=== PATIENT | female | born 1995 | race Caucasian/White ===

== ENCOUNTER → 2018-04-02 | Outpatient (CLI) | payer BC, OTHER | LOC: RAD 09:05 | DX: S13.4XXA Sprain of ligaments of cervical spine, initial encounter (principal); V89.2XXA Person injured in unspecified motor-vehicle accident, traffic, initial encounter; Y93.89 Activity, other specified; Y92.89 Other specified places as the place of occurrence of the external cause; Y99.8 Other external cause status ==

== ENCOUNTER → 2019-08-18 | Outpatient (CLI) | payer BC, OTHER | LOC: NUC 09:35 | DX: R10.84 Generalized abdominal pain (principal); R19.7 Diarrhea, unspecified ==

== ENCOUNTER 2019-11-05 06:07 | Day surgery (SDC) | payer BC ==
[~2019-11-05] VITALS: Ht 172.7 cm; Wt 95.3 kg
[~2019-11-05 06:07] MED LIST: ISIBLOOM 28 DA1 EACH PO; TRAZODONE HCL50 MG PO; ZYRTEC10 M2 PO
[2019-11-05 06:42] LABS: HEMATOCRIT 42.9 % (37.0-47.0); HEMOGLOBIN 15.1 gm/dL (12.0-15.0); MCH 28.9 pg (26.0-34.0); MCHC 35.2 g/dL (28.0-37.0); MCV 82.1 fL (80.0-100.0); RBC 5.22 mil/uL (4.20-5.00); RDW 13.1 % (10.5-14.5); WBC 8.4 thou/uL (4.0-11.0)
[2019-11-05 06:50] LABS: CALCIUM 9.2 mg/dL (8.5-10.1); CREATININE 0.8 mg/dL (0.6-1.0); POTASSIUM 3.8 mmol/L (3.5-5.1)
[2019-11-05 06:57] LABS: TOTAL BILIRUBIN 0.7 mg/dL (<0.1-1.0); TOTAL PROTEIN 7.6 g/dL (6.4-8.2)
[2019-11-05 06:58] VITALS: BP 123/74
[2019-11-05] MEDS ORDERED: IBUPROFEN 200200 M1 PO (08:44)
[2019-11-05] MEDS ORDERED: TRAMADOL 50 MG50 MG PO (08:44)
[2019-11-05] MEDS ORDERED: COLACE 100 MG100 MG PO (08:45)
[2019-11-05] MEDS ORDERED: ACETAMINOPHEN325 M1 PO (08:45)
[2019-11-05] MEDS ORDERED: MIRALAX17 GM PO (08:46)
[2019-11-05 08:59] VITALS: BP 123/74
--- NOTE | 2019-11-09 18:08 | PATH ---
[facility] [address] [place] [address] PATHOLOGY RPT PROCEDURE Name: KAREN MASON Room #: DEP [facility] M.R.#: [id number] Admission: 11/05/19 Date of : 89 Discharge: 11/05/19 Report #: [id number] Path Case #: [id number] [facility] Accession Number: [id number] . 01 Material submitted: . gallbladder - GALLBLADDER . 01 Clinical history: . Biliary dyskinesia . 02 Diagnosis: Gallbladder, cholecystectomy: - Mild chronic cholecystitis. - Cholelithiasis. (IUV/db; 11/09/2019) LBQ 11/09/2019 1423 Local . 02 Electronically signed: . Amie Quinn MD, Pathologist NPI- [id number] . 01 Gross description: . The specimen is received in formalin, labeled "Karen Pummel, gallbladder". Received is a previously opened gallbladder measuring 6.0 x 1.8 x 1.0 cm in greatest dimensions displaying a pink-rodriguez to bluegray finger serosal surface. Opening the specimen reveals a velvety, pink-murguia mucosa with a gallbladder wall thickness of 0.1 cm. Calculi are not present, and no masses or lesions are noted grossly. Therapeutic Radiologist sections, to include the proximal margin, are submitted in cassette A1. (CAA; 11/05/2019) QAC/QA 11/05/2019 1500 Local . 02 Pathologist provided ICD-10: K80.10 . 02 CPT . 965743 Specimen Comment: A courtesy copy of this report has been sent to [phone], [phone] Specimen Comment: [phone] Specimen Comment: Report sent to / DR CHRIS Performed at: 01 [place] [id number] [address] [id number] MD Best Rust MD Phone: [phone] Performed at: [address] [address] PATHOLOGY RPT PROCEDURE Name: KAREN MASON Room #: DEP [facility] M..#: [id number] Admission: 11/05/19 Date of : [birth year] Discharge: 11/05/19 Report #: [id number] Path Case #: [id number] [address] [place] [id number] MD Amie Quinn MD Phone: [phone]
== END 2019-11-05 06:25 | disposition home or self-care (01) ==
LOC: OR 06:07 → TBA 06:09 → OR 06:25
PROVIDERS: Surgery
DX: K80.10 Calculus of gallbladder with chronic cholecystitis without obstruction (principal); E66.09 Other obesity due to excess calories; F41.9 Anxiety disorder, unspecified; Z98.890 Other specified postprocedural states; Z11.59 Encounter for screening for other viral diseases; Z79.899 Other long term (current) drug therapy; Z88.8 Allergy status to other drugs, medicaments and biological substances
CPT/HCPCS: 50010; 50101; 50249; 50411; 50555; 50558; 51489; 52265; 52266; 53307; 53310; 53312; 54022; 54118; 55245; 56462; 56525; 56526; 62110; 62900; 70005